=== PATIENT | male | born 1995 | race Caucasian/White ===

== ENCOUNTER 2016-11-26 12:06 | Emergency (ER) | payer MEDICAID ==
[~2016-11-26] VITALS: Ht 188 cm; Wt 89.0 kg
[2016-11-26 12:07] VITALS: Ht 188 cm; Wt 89.0 kg
--- NOTE | 2016-11-26 13:42 | ERD ---
ER Documentation Chief Complaint Date/Time DATE: 11/26/16 TIME: 13:39 Chief Complaint rash over body x 4 days HPI Otherwise healthy 21-year-old male presents to the emergency department complaining of a itchy rash which began 4 days ago. Patient states that he was eating peanuts and then went to soccer practice for school and developed the rash after running at practice. Patient describes the rash as a red itchy nonpainful rash extending his upper back, scalp, and inner thighs. Patient notes associated right eye swelling. Patient was seen at an urgent care 4 days ago and received a shot of Decadron which she states improved his symptoms. Patient was counseled on allergic contact dermatitis and instructed to stay away from certain foods. Patient states that he is continuing his normal diet. Patient notes the rash returned after 2 days and continues to be itchy. Patient denies any trouble breathing, wheezing, swelling of lips or tongue, or coughing. ROS All systems reviewed and are negative except as per history of present illness. Medications Home Meds Active Scripts Cetirizine Hcl* (Zyrtec*) 10 Mg Capsule, 10 MG PO DAILY for 10 Days, TAB Prov:AVE SCRUGGS PA-C 11/26/16 Famotidine* (Pepcid*) 20 Mg Tablet, 20 MG PO BID for 10 Days, TAB Prov:AVE SCRUGGS PA-C 11/26/16 Triamcinolone Acetonide (Triamcinolone Acetonide) 0.025% - 60 Ml Lotion, 1 APPLIC TOP TID, #1 BOTTLE Prov:AVE SCRUGGS PA-C 11/26/16 Clotrimazole* (Clotrimazole*) 10 Mg Ayaan, 10 MG MM 5 TIMES DAILY for 7 Days, TAB Prov:AVE SCRUGGS PA-C 11/26/16 Prednisone* (Prednisone*) 20 Mg Tab, 40 MG PO DAILY for 4 Days, TAB Prov:AVE SCRUGGS PA-C 11/26/16 Allergies Allergies: Coded Allergies: No Known Allergy (Unverified , 11/26/16) PMhx/Soc Medical and Surgical Hx: pt denies Medical Hx, pt denies Surgical Hx History of Surgery: No Anesthesia Reaction: No Hx Neurological Disorder: No Hx Respiratory Disorders: No Hx Cardiac Disorders: No Hx Psychiatric Problems: No Hx Miscellaneous Medical Probl: No Hx Alcohol Use: No Hx Substance Use: No Hx Tobacco Use: No Smoking Status: Never smoker Physical Exam Vitals Vital Signs Date Time Temp Pulse Resp B/P Pulse Ox O2 Delivery O2 Flow Rate FiO2 11/26/16 12:07 97.9 83 18 142/79 99 Physical Exam General: Well developed, well nourished, interactive, no distress Head: Normocephalic, atraumatic EENT: Mild right-sided periorbital edema without erythema or tenderness to palpation. Orbit without erythema, injection, or drainage. No evidence of orbital cellulitis. Pupils equally reactive, EOM intact, posterior pharynx without exudates, uvula midline, tympanic membranes without erythema or swelling bilaterally. No evidence of angioedema Neck: Supple, no lymphadenopathy Respiratory: Lungs clear bilaterally, no distress Cardiovascular: RRR, no murmurs, rubs, or gallops Abdominal: Soft, non-tender, non-distended, no peritoneal signs : Deferred MSK: No edema, no unilateral swelling, moving all four extremities Nurologic: Alert, interactive, p appropriate for age Skin: Erythematous urticarial-like lesions located near scapular region of upper back and scalp with small surrounding satellite lesions. Isolated urticarial-like erythematous lesions also noted along the inner thighs bilaterally. Results 24 hrs Current Medications Medications (Trade) Dose Ordered Sig/Shirley Route PRN Reason Start Time Stop Time Status Last Admin Dose Admin Dexamethasone (Decadron) 10 mg ONCE ONCE IM 11/26/16 14:00 11/26/16 14:01 DC 11/26/16 13:57 Procedures/MDM 21-year-old male presents with ongoing itchy rash which occurred 4 days ago. Patient was seen by an urgent managed care nurse who treated him with Decadron. Patient noticed improvement however states that his symptoms have returned. Patient denies any respiratory compromise, wheezing, cough or significant facial swelling aside from right Aida-Orbital swelling. Patient's presentation was consistent with urticarial versus fungal rash of unknown etiology. Patient provided with steroids as well as antifungal cream and instructed to follow-up with breeding manager for better management of his ongoing symptoms. Based on patient's history of present illness and physical examination the decision was made to discharge. The patient was re-evaluated after ED treatment and stabilizing measures, and symptoms have improved. There is no evidence of life threatening injuries or illnesses at this time. On re-examination, patient resting in no distress, stable vital signs, reports feeling better and safe for discharge with outpatient follow up with PMD in 1-2 days. Patient given return precautions. AVE SCRUGGS PA-C Nov 26, 2016 13:42
[2016-11-26] MEDS ORDERED: DEXAMETHASONE 10 MG/ML 1 ML INJ IM ONE (14:00)
[2016-11-26] MEDS ORDERED: PRED20TA PO (14:07)
[2016-11-26] MEDS ORDERED: CLOT10TR6 MM (14:09)
[2016-11-26] MEDS ORDERED: [UNRECOGNIZED DRUG - CODE] TOP (14:15)
[2016-11-26] MEDS ORDERED: FAMO-18 PO (14:24)
[2016-11-26] MEDS ORDERED: CETI10CA PO (14:24)
[2016-11-26 14:29] VITALS: BP 117/64; PULSE 74; RESP 19; TEMP 98.4
== END 2016-11-26 14:30 | disposition home or self-care (01) ==
LOC: FTE 12:06
DX: R21 Rash and other nonspecific skin eruption (principal)
CPT/HCPCS: 96372; J1100

== ENCOUNTER 2016-12-19 10:55 | Emergency (ER) | payer MEDICAID ==
[~2016-12-19] VITALS: Ht 175.3 cm; Wt 71.0 kg
[~2016-12-19 10:55] MED LIST: CETI10CA PO; CLOT10TR6 MM; FAMO-96 PO; PRED20TA PO; TRIA60LO10 TOP
[2016-12-19 10:58] VITALS: Ht 175.3 cm; Wt 71.0 kg
[2016-12-19] MEDS ORDERED: PRED50TA PO (12:07)
[2016-12-19] MEDS ORDERED: HYDR28.424 TP (12:07)
--- NOTE | 2016-12-19 12:14 | ERD ---
ER Documentation Chief Complaint Date/Time DATE: 12/19/16 TIME: 12:11 Chief Complaint RASH HPI This is an otherwise healthy 21-year-old male presents to the ER with a rash to his left shoulder. Patient had a scratch on November 26 came to the ER and was given prednisone. Patient states that this helped with the rash. Rash is itchy. Patient denies any fevers or chills. He has not come in contact with any new substances or medications. She states that rash is intermittent. He denies any facial swelling or difficulty in breathing. ROS 12 point review of systems was done, all negative except per HPI. Medications Home Meds Active Scripts Hydrocortisone/Aloe Vera (HYDROCORTISONE PLUS 1% CREAM) 28.4 Gm Cream..g., 28.4 GM TP BID for 3 Days Prov:MISBAH CHINO 12/19/16 Prednisone* (Prednisone*) 50 Mg Tablet, 50 MG PO QHS for 3 Days, TAB Prov:MISBAH CHINO 12/19/16 Cetirizine Hcl* (Zyrtec*) 10 Mg Capsule, 10 MG PO DAILY for 10 Days, TAB Prov:AVE SCRUGGS PA-C 11/26/16 Famotidine* (Pepcid*) 20 Mg Tablet, 20 MG PO BID for 10 Days, TAB Prov:AVE SCRUGGS PA-C 11/26/16 Triamcinolone Acetonide (Triamcinolone Acetonide) 0.025% - 60 Ml Lotion, 1 APPLIC TOP TID, #1 BOTTLE Prov:AVE SCRUGGS PA-C 11/26/16 Clotrimazole* (Clotrimazole*) 10 Mg Ayaan, 10 MG MM 5 TIMES DAILY for 7 Days, TAB Prov:AVE SCRUGGS PA-C 11/26/16 Prednisone* (Prednisone*) 20 Mg Tab, 40 MG PO DAILY for 4 Days, TAB Prov:AVE SCRUGGS PA-C 11/26/16 Allergies Allergies: Coded Allergies: No Known Allergy (Unverified , 11/26/16) PMhx/Soc Medical and Surgical Hx: pt denies Medical Hx, pt denies Surgical Hx History of Surgery: No Anesthesia Reaction: No Hx Neurological Disorder: No Hx Respiratory Disorders: No Hx Cardiac Disorders: No Hx Psychiatric Problems: No Hx Miscellaneous Medical Probl: No Hx Alcohol Use: No Hx Substance Use: No Hx Tobacco Use: No Smoking Status: Never smoker Physical Exam Vitals Vital Signs Date Time Temp Pulse Resp B/P Pulse Ox O2 Delivery O2 Flow Rate FiO2 12/19/16 10:58 98.1 77 20 135/77 99 Physical Exam GENERAL: The patient is well developed and appropriate for usual state of health , in no apparent distress. HEENT: Atraumatic. There is no lip, tongue, eyes swelling. No uvular deviation or kissing tonsils. CHEST: Clear to auscultation bilaterally. There are no rales, wheezes or rhonchi. HEART: Regular rate and rhythm. No murmurs, clicks, rubs or gallops. NEURO: Alert and oriented. SKIN: Hives to the left shoulder. Procedures/MDM Differential Diagnosis: dermatitis, allergic urticaria, viral exanthem, insect bite, fungal infectio ,viral exanthem, hand foot mouth disease, , impetigo, cellulitis, abscess, yunier winnie syndrome, meningocemia, necrotizing fasciitis, myositis. This is likely allergic urticaria. At this time rash is localized and is very itchy. Patient was already treated with prednisone and states that this helped his rash. At this time I do not believe that patient is having an anaphylactic reaction he is extremely well-appearing and not hypoxic. I doubt infectious etiology as patient is afebrile. Patient will be sent home with prednisone with hydrocortisone. She was advised to follow-up with his primary care doctor and get allergy testing done. Patient my medical decision making with the patient understands and agrees with plan. Patient should return to ER symptoms Departure Diagnosis: Primary Impression: Rash Condition: Stable Patient Instructions: Self-Care for Skin Rashes Referrals: COMMUNITY CLINICS YOU HAVE RECEIVED A MEDICAL SCREENING EXAM AND THE RESULTS INDICATE THAT YOU DO NOT HAVE A CONDITION THAT REQUIRES URGENT TREATMENT IN THE EMERGENCY DEPARTMENT. FURTHER EVALUATION AND TREATMENT OF YOUR CONDITION CAN WAIT UNTIL YOU ARE SEEN IN YOUR DOCTORS OFFICE WITHIN THE NEXT 1-2 DAYS. IT IS YOUR RESPONSIBILITY TO MAKE AN APPOINTMENT FOR FOLOW-UP CARE. IF YOU HAVE A PRIMARY DOCTOR --you should call your primary doctor and schedule an appointment IF YOU DO NOT HAVE A PRIMARY DOCTOR YOU CAN CALL OUR PHYSICIAN REFERRAL HOTLINE AT IF YOU CAN NOT AFFORD TO SEE A PHYSICIAN YOU CAN CHOSE FROM THE FOLLOWING [facility] [id number] [facility] [address] [facility]. [facility] [address] [facility]. [facility] [address] [facility]. [facility] [phone] [id number] [facility]. [facility] [address] Additional Instructions: Call your primary care doctor TOMORROW for an appointment during the next 1-2 days.See the doctor sooner or return here if your condition worsens before your appointment time. ASK FOR IMMUNOCAP TEST-> ENVIRONMENT AND FOOD MISBAH CHINO Dec 19, 2016 12:14
== END 2016-12-19 12:25 | disposition home or self-care (01) ==
LOC: FTE 10:55
DX: R21 Rash and other nonspecific skin eruption (principal)
CPT/HCPCS: 99283